=== PATIENT | male | born 1995 | race Hispanic/Latino ===

== ENCOUNTER 2021-11-30 12:52 | Emergency (ER) | payer OTHER, SELFPAY ==
[2021-11-30 13:56] LABS: Amphetamine Detected (NotDetected); Barbiturates Screen Not Detected (NotDetected); Benzodiazepine Screen Not Detected (NotDetected); Cocaine Metabolite Screen Not Detected (NotDetected); Methadone Not Detected (NotDetected); Methamphetamine Detected (NotDetected); Opiate Screen Not Detected (NotDetected); Oxycodone Screen Not Detected (NotDetected); Phencyclidine (PCP) Not Detected (NotDetected); THC/Cannabinoid Screen Detected (NotDetected); Tricyclic Screen Not Detected (NotDetected)
[2021-11-30] MEDS ORDERED: Boostrix 0.5 ML (Tdap) VIAL ONE (14:08)
[2021-11-30 14:12] LABS: #Basophils 0.1 10x3/uL (0.0-0.2); #Eosinphils 0.1 10x3/uL (0.0-0.5); #Monocytes 0.8 10x3/uL (0.0-1.1); #Neutrophils 9.9 10x3/uL (1.5-8.4); %Basophils 0.4 % (0.0-2.0); %Eosinophils 0.6 % (0.0-6.0); %Lymphocytes 12.3 % (18.0-47.0); %Monocytes 6.4 % (0.0-10.0); Hemoglobin 15.7 g/dL (13.5-17.5); Mean Corpuscular HGB CONC 33.1 g/dL (32.0-36.0); Mean Corpuscular Hemoglobin 30.2 pg (27.0-33.0); Mean Corpuscular Volume 91.2 fl (81.2-95.1); Mean Platelet Volume 9.7 fl (7.4-10.4); Platelet Count 253 10x3/uL (150-450); White Blood Cell (WBC) Count 12.4 10x3/uL (3.5-10.5)
[2021-11-30 14:23] LABS: Acetaminophen Less than 6.0 mcg/mL (10.0-30.0); Alcohol Less than 10 mg/dL (Less than 10); Salicylate Less than 8.0 mg/dL (15.0-30.0)
[2021-11-30 14:24] LABS: ALT (SGPT) 18 U/L (8-55); AST (SGOT) 24 U/L (5-34); Albumin 4.3 g/dL (3.5-5.0); Alkaline Phosphatase 60 U/L (40-110); Anion Gap 11 mmol/L (10-20); BUN (Urea Nitrogen) 8 mg/dL (8.9-20.6); Bilirubin, Total 0.4 mg/dL (0.2-1.2); Calc. Creatinine Clearance 0 mL/min (70-130); Calcium 9.2 mg/dL (7.8-10.44); Carbon Dioxide 25 mmol/L (22-29); Chloride 109 mmol/L (98-107); Globulin 2.7 g/dL (2.4-3.5); Glucose 95 mg/dL (70-105); Potassium 4.3 mmol/L (3.5-5.1); Sodium 141 mmol/L (136-145)
[2021-11-30 16:31] LABS: SARS-CoV-2 NAA Rapid Test Not Detected (NotDetected)
== END 2021-12-01 08:58 ==
LOC: CSHERS 12:52
DX: S01.01XA Laceration without foreign body of scalp, initial encounter (principal); R45.88 Nonsuicidal self-harm; Z20.822 Contact with and (suspected) exposure to COVID-19; W22.8XXA Striking against or struck by other objects, initial encounter
CPT/HCPCS: 12001; 80053; 80306; 80307; 83735; 85025; 90471; 90715; 93005; U0002

== ENCOUNTER 2022-05-31 16:29 | Emergency (ER) | payer OTHER | END 2022-05-31 19:20 | disposition home or self-care (01) | LOC: CSHERS 16:29 | DX: S09.90XA Unspecified injury of head, initial encounter (principal); R04.0 Epistaxis; E78.00 Pure hypercholesterolemia, unspecified; W18.00XA Striking against unspecified object with subsequent fall, initial encounter | CPT/HCPCS: 70450; 70486 ==